=== PATIENT | male | born 1950 | race Caucasian/White ===

== ENCOUNTER → 2019-05-11 13:00 | Day surgery (SDC) | payer MEDICARE, OTHER ==
[~2019-05-11 13:00] MED LIST: Acetaminophen TAB* 325 MG PO PRN; Buffered Lidocaine 1% SYRIN* 1 ML/SYRINGE INTRADERM ONE; Cyclopentolate 1% OPTH.SOL* 2 ML BTL ONE; Ketorolac 0.5% OPHTH (NF) 0.5 % 5 ML BTL ONE; Labetalol IV* 5 MG/ML 20 ML VIAL ONE; Lidocaine 1% MPF ** 5 ML VIAL ONE; Midazolam* 1 MG/ML 5 ML VIAL (5 MG) ONE; Neomycin/Polymy/Dex OPHTH.OIN* 3.5 GM ONE; Phenylephr/Ketorolac 1%/0.3% OPH DROP BTL ONE; Phenylephrine OPHTH SOL 2.5%* 2 ML ONE; Tetracaine 0.5% OPTH.SOL 4 ML* 1 DROP BTL ONE; Tropicamide 1% OPTH.SOL* BTL ONE; fentaNYL* 50 MCG/ML 2 ML VIAL (100 MCG VIAL) ONE
--- NOTE | 2019-05-11 15:17 | OP ---
DATE OF OPERATION: 05/11/19 [facility] DATE OF : 46 SURGEON: Jaylon Astorga MD MARKETING ASSISTANT: None. ANESTHESIA: Topical with intravenous sedation. PRE-OP DIAGNOSIS: Cataract and astigmatism, left eye. POST-OP DIAGNOSIS: Cataract and astigmatism, left eye. OPERATIVE PROCEDURE: Phacoemulsification and cataract extraction with posterior chamber toric intraocular lens implant, left eye. COMPLICATIONS: None. BLOOD LOSS: None. DESCRIPTION OF PROCEDURE: The patient was brought to the operating room and given intravenous sedation. A drop of tetracaine was placed in his left eye. The patient was prepped and draped in the usual sterile fashion for ophthalmic surgery and attention was directed to the left eye where a speculum was placed. A paracentesis was created at the 5 o'clock position. 0.1 cc of 1% preservative-free lidocaine was injected into the anterior chamber followed by DisCoVisc. The eye was digitally stabilized while a 2.75-mm keratome was used to create a triplanar clear corneal incision at the 3 o'clock position. It was noted that the pupil was dilated only to approximately 3.5 mm. A continuous curvilinear capsulorrhexis using a cystotome and Utrata forceps was created. This measured approximately 4 mm in diameter. BSS on a cannula was used to hydrodissect the lens from the capsule. Omidria was added to the irrigating solution. Phacoemulsification was performed in a hgydsd-aor-bviuumi technique to create 4 fragments, which were removed. Residual cortical material was removed with irrigation and aspiration. The capsular bag was polished. The capsule was filled with Provisc. The eye pressure was checked and found to be adequate to continue. The surface of the eye was irrigated with balanced saline solution. The ORA device was employed to guide the lens choice. An SN6AT4 15.5 diopter lens was folded and inserted into the eye. The reticle and the ORA guided lens axis alignment to 153 degrees. A Sinskey hook was used to stabilize the lens in this position while irrigation and aspiration were performed to remove viscoelastic from the eye. The Sinskey hook was removed. BSS on the cannula was used to hydrate the corneal stoma and seal the wound. At the end of the case, the pupil was round. It measured approximately 4 mm. The lens was centered, stable and axially aligned. The eye pressure appeared normal and the wound was water tight. The speculum was removed and topical Maxitrol ointment was placed on the surface of the eye. The eye was closed, patched, and shielded and the patient was sent to the recovery room in stable condition with postoperative instructions and followup appointment given. [id number] #: [id number] MTDD
[2019-05-11 15:31] VITALS: BP 151/97
== END | disposition home or self-care (01) ==
LOC: OREAST 13:00
PROVIDERS: ATTEND Ophthalmology
DX: Z01.818 Encounter for other preprocedural examination (principal); H25.12 Age-related nuclear cataract, left eye; H25.042 Posterior subcapsular polar age-related cataract, left eye; R03.0 Elevated blood-pressure reading, without diagnosis of hypertension; E78.00 Pure hypercholesterolemia, unspecified; K21.9 Gastro-esophageal reflux disease without esophagitis; I10 Essential (primary) hypertension; G45.9 Transient cerebral ischemic attack, unspecified; E78.2 Mixed hyperlipidemia; K22.70 Barrett's esophagus without dysplasia; F17.211 Nicotine dependence, cigarettes, in remission; F43.12 Post-traumatic stress disorder, chronic; Z68.31 Body mass index [BMI] 31.0-31.9, adult
CPT/HCPCS: A9270-GY; C9447; J2250; J3010; V2787